=== PATIENT | female | born 1970 | race Caucasian/White ===

== ENCOUNTER 2017-05-20 10:46 | Emergency (ER) | payer OTHER ==
[~2017-05-20] VITALS: Ht 154.9 cm; Wt 55.3 kg
[~2017-05-20 10:46] MED LIST: ADV100/50 INH; AMOXICILLIN500 M1 PO; FERROUS GLUCON300 MG PO; MEDDP PO; METFORMIN HCL500 MG PO; QVAR0.08 MG/Ac IH; SINGULAIR10 MG PO; VENTOLIN H0.09 MG/A1 IH; VENTOLIN H0.09 MG/A1 INH; VITAMIN C100 M1 PO
[2017-05-20 10:50] VITALS: Ht 154.9 cm; Wt 55.3 kg
[2017-05-20 12:18] LABS: UA SPECIFIC GRAVITY 1.025 (1.005-1.035); microscopic required? YES; urine erythrocyte 2+ (NEGATIVE)
[2017-05-20 15:08] VITALS: BP 133/91
== END 2017-05-20 15:08 | disposition home or self-care (01) ==
LOC: ED 10:46
PROVIDERS: Emergency Medicine
DX: J45.901 Unspecified asthma with (acute) exacerbation (principal); N83.202 Unspecified ovarian cyst, left side; N83.201 Unspecified ovarian cyst, right side; N93.9 Abnormal uterine and vaginal bleeding, unspecified
CPT/HCPCS: J7512; J7613; J7644

== ENCOUNTER 2019-02-17 11:20 | Inpatient (IN) | payer OTHER ==
[~2019-02-17] VITALS: Ht 154.9 cm; Wt 56.7 kg
[2019-02-17 12:38] LABS: BASOPHIL % 1.3 % (0-2); PLATELET COUNT 371 x10^3mcL (130-400)
[2019-02-17 12:39] LABS: RED CELL DISTRIBUTION WIDTH 15.1 % (11.5-14.5)
--- NOTE | 2019-02-17 12:45 | NUR ---
PATIENT AAOX4 PRESENTS TO THE ED S/P FALL WITH SYNCOPE EPISODE IN THE SHOWER. PATIENT NOTED TO HAVE SWELLING AND ECCYMOSIS AROUND THE NASAL CAVITY AND FOREHEAD. BREATHING E/U, SKIN WARM DRY AND INTACT. NO OTHER SS OF DISTRESS NOTED. PT PLACED ON ALL MONITORS FOR FURTHER OBSERVATION. WILL CONTINUE TO MONITOR.
--- NOTE | 2019-02-17 13:00 | NUR ---
PATIENT SITTING UP ON GURNEY- C/O HEADACHE. PROVIDED ICE PACKS FOR COMFORT. WILL CONTINUE TO MONITOR.
[2019-02-17 13:01] LABS: CALCIUM 8.1 mg/dL (8.5-10.1); CARBON DIOXIDE 27.3 mmol/L (21-32); CHLORIDE SERUM 102 mmol/L (98-107); CREATININE SERUM 0.6 mg/dL (0.6-1.0); GFR1 > 60 mL/min; GLUCOSE SERUM 127 mg/dL (74-106); POTASSIUM SERUM 3.7 mmol/L (3.5-5.1); SODIUM SERUM 137 mmol/L (136-145)
[2019-02-17 13:13] LABS: ALBUMIN 3.7 g/dL (3.4-5.0); ALKALINE PHOSPHATASE 140 U/L (46-116); ALT/SGPT 71 U/L (14-59); AST/SGOT 84 U/L (15-37); BILIRUBIN TOTAL 0.61 mg/dL (0.20-1.00); CHOLESTEROL 216 mg/dL (<200); HDL CHOLESTEROL 103 mg/dL (40-60); LIPASE 200 IU/L (73-393); MAGNESIUM 1.9 mg/dL (1.8-2.4); T4(THYROXINE) 6.8 ug/dL (4.7-13.3); TOTAL PROTEIN, SERUM 8.2 g/dL (6.4-8.2)
[2019-02-17 14:40] LABS: UA SPECIFIC GRAVITY <=1.005 (1.005-1.035); microscopic required? YES; urine erythrocyte TRACE (NEGATIVE)
[2019-02-17 14:50] LABS: AMPHETAMINE QUAL UR NONE DETECTED (See below)
--- NOTE | 2019-02-17 15:34 | NUR ---
PATIENT PLACED IN RESPIRATORY ISOLATION PER DR ULRICH.
--- NOTE | 2019-02-17 15:54 | NUR ---
FAMILY BEDSIDE-- PATIENT SITTING UP ON GURNEY WITH NO SS OF DISTRESS NOTED. WILL CONTINUE TO MONITOR.
--- NOTE | 2019-02-17 15:59 | NUR ---
REPORT CALLED TO TOSIN LEVY A/A SHE WILL BE GOING UPSTAIRS VIA [facility] WITH MILLER SIMS AND EMT
--- NOTE | 2019-02-17 16:25 | NUR ---
RECEIVED PT FROM ED [facility]IA [facility], CAME IN DUE TO SYNCOPE. AAOX4. DENIES HEADACHE/DIZZINESS. ABLE TO FOLLOW COMMANDS. NO SOB NOTED, LUNG SOUNDS CTA. STATED THAT SHE HAS PRODUCTIVE COUGH, ABLE TO EXPECTORATE WHITE PHLEGM AT TIMES. DENIES CHEST PAIN/PRESSURE, SR ON THE MONITOR. DENIES ABDOMINAL DISCOMFORT. BOWEL SOUNDS ACTIVE. VOIDS. W/ ECCHYMOSIS AND SWELLING ON THE FACE. SIDE RAILS UPX2. CALL LIGHT ON REACH. PRIMARY NURSE TOSIN AT BEDSIDE FOR CONTINUITY OF CARE
[2019-02-17 16:39] VITALS: BP 144/86
[2019-02-17 16:44] VITALS: Ht 154.9 cm; Wt 56.7 kg
--- NOTE | 2019-02-17 17:30 | NUR ---
FLU VACCINE ADMINISTERED TO L ARM.
--- NOTE | 2019-02-17 19:20 | NUR ---
CARE ASSUMED FROM OUTGOING RN. PT RESTING COMFORTABLY IN BED. NO ACUTE DISTRESS NOTED. EVEN AND UNLABORED RESPIRATIONS ON RA. ON TELE# 17 READING SR WITH SLIGHTLY DEPRESSED T WAVE. IVL INTACT. NO C/O PAIN AT THIS TIME. AIRBORNE ISOLATION IN PLACE TO R/O TB. INSTRUCTED PT TO PROVIDE SPUTUM SAMPLE, PT VERBALIZED UNDERSTANDING. BED IN LOWEST POSITION. SIDE RAILS UPX2. CALL LIGHT WITHIN REACH. WILL CONTINUE TO MONITOR.
--- NOTE | 2019-02-17 19:24 | NUR ---
PT SEEN AT BEDSIDE, AOX4, RESP E/U ON RA. DENIES PAIN OR SOB. NO ACUTE DISTRESS NOTED. BED IN LOWEST POSITION AND CALL LIGHT WITHIN REACH. AIRBORNE PRECAUTIONS IN PLACE TO R/O TB. CARE ENDORSED TO MILLER CERVANTES.
[2019-02-17 21:10] VITALS: BP 113/55
--- NOTE | 2019-02-18 00:34 | NUR ---
PT RESTING COMFORTABLY IN BED WITH EYES CLOSED. NO ACUTE DISTRESS NOTED. EVEN AND UNLABORED RESPIRATIONS ON RA. ON TELE#17 READING SR 85. IV PATENT AND INTACT RUNNING FLUIDS PER EMAR. AIRBORNE PRECAUTION IN USE. BED IN LOWEST POSITION. SIDE RAILS UPX2. CALL LIGHT WITHIN REACH. WILL CONTINUE TO MONITOR.
[2019-02-18 04:39] VITALS: BP 159/63
--- NOTE | 2019-02-18 06:08 | NUR ---
PT SLEPT IN INTERVALS THROUGHOUT THE SHIFT. ALL NEEDS TENDED TO AND MET. ALL SCHEDULED MEDICATIONS GIVEN. ON TELE# 17 READING SR. IV PATENT AND INTACT RUNNING FLUIDS PER EMAR. NO C/O HEADACHE/DIZZINESS OR ANY PAIN. BED IN LOWEST POSITION. AIRBORNE PRECAUTION IN PLACE. SIDE RAILS UPX2. CALL LIGHT WITHIN REACH. WILL ENDORSE TO ONCOMING SHIFT.
[2019-02-18 06:43] LABS: CARBON DIOXIDE 23.7 mmol/L (21-32); CHLORIDE SERUM 103 mmol/L (98-107); CREATININE SERUM 0.6 mg/dL (0.6-1.0); GFR1 > 60 mL/min; GLUCOSE SERUM 156 mg/dL (74-106); MAGNESIUM 1.7 mg/dL (1.8-2.4); PHOSPHOROUS 3.4 mg/dL (2.5-4.9); POTASSIUM SERUM 3.8 mmol/L (3.5-5.1); SODIUM SERUM 136 mmol/L (136-145)
[2019-02-18 06:58] LABS: BASOPHIL % 0.3 % (0-2); PLATELET COUNT 291 x10^3mcL (130-400)
--- NOTE | 2019-02-18 07:31 | NUR ---
RECEIVED PT LYING IN BED WITH EYES CLOSED, EASILY AROUSABLE. BREATHING EQUAL/UNLABORED ON RA. NO ACUTE PAIN/ DISTRESS. IVF RUNNING. NO REDNESS/ SWELLING TO IV SITE. BED IN LOW POSITION, CALL LIGHT IN REACH, SAFETY PRECAUTIONS IN PLACE. WILL CONTINUE TO MONITOR
[2019-02-18 07:50] LABS: RED CELL DISTRIBUTION WIDTH 15.2 % (11.5-14.5)
[2019-02-18 08:54] VITALS: BP 137/89
--- NOTE | 2019-02-18 11:54 | NUR ---
PT LYING IN BED A/A. BREATHING EQUAL/UNLABORED ON RA. NO ACUTE PAIN/ DISTRESS. IVF RUNNING AT 100ML/HR. NO REDNESS/SWELLING TO IV SITE. BED IN LOW POSITION, CALL LIGHT IN REACH, SAFETY PRECAUTIONS IN PLACE. WILL CONTINUE TO MONITOR
[2019-02-18 12:42] VITALS: BP 137/82
--- NOTE | 2019-02-18 14:38 | NUR ---
P.T. NOTES P.T. EVAL COMPLETED; PATIENT MAY AMBULATE INSIDE ROOM, AD MORIAH W/ NURSE. O2 SAT ROOM AIR=95%
[2019-02-18 17:23] VITALS: BP 133/79
--- NOTE | 2019-02-18 18:25 | NUR ---
PT SITTING UP IN BED A/A/ BREATHING EQUAL/UNLABORED ON RA. NO ACUTE PAIN/ DISTRESS. IVF RUNNING AT 100ML/HR. NO REDNESS/ SWELLING TO IV SITE. BED IN LOW POSITON, CALL LIGHT IN REACH, SAFETY PRECAUTIONS IN PLACE, FAMILY AT BED SIDE. WILL ENDORSE TO NIGHT NURSE
--- NOTE | 2019-02-18 19:20 | NUR ---
RECEIVED REPORT FROM DAY SHIFT NURSE, SYLVIA BHATT. PT IS AAOX4. SPEECH IS CLEAR. DENIES STARK. ON TELE #17 READING SR AT 83. DENIES CP/PRESSURE. PULSES ARE PALPABLE. NO EDEMA NOTED. BREATHING IS EVEN AND UNLABORED ON RA. LUNG SOUNDS CTA. NO SIGNS OF RESP. DISTRESS. DENIES SOB. ABD IS SOFT AND NONDISTENDED. BS ACTIVE. DENIES N/V/D. VOIDS FREELY. DENIES DYSURIA. AMBULATORY. ECCHYMOSIS NOTED TO FACE. DENIES ANY PAIN AT THIS TIME. IV TO LAC DRY AND INTACT. NO ERYTHEMA NOTED. FRIEND AT BEDSIDE. BED IN LOWEST POSITION. CALL LIGHT WITHIN REACH. AIRBORNE PRECAUTIONS IN PLACE UNTIL TB R/O. WILL CONTINUE TO MONITOR.
[2019-02-18 20:27] VITALS: BP 135/78
--- NOTE | 2019-02-18 21:27 | NUR ---
ROUTINE MEDICATIONS WERE GIVEN AND TOLERATED WELL. NO ACUTE DISTRESS NOTED. BREATHING IS EVEN AND UNLABORED ON RA. NO SIGNS OF RESP. DISTRESS. DENIES ANY PAIN AT THIS TIME. DENIES ANY BLEEDING FROM NOSE AT THIS TIME. BED IN LOWEST POSITION. CALL LIGHT WITHIN REACH. WILL CONTINUE TO MONITOR.
--- NOTE | 2019-02-18 23:42 | NUR ---
PT IS RESTING COMFORTABLY IN BED WITH EYES CLOSED, BUT EASILY AROUSABLE WHEN SPOKEN TO. BREATHING IS EVEN AND UNLABORED ON RA. NO SIGNS OF RESP DISTRESS. BED IN LOWEST POSITION. CALL LIGHT WITHIN REACH. WILL CONTINUE TO MONITOR.
--- NOTE | 2019-02-19 01:52 | NUR ---
PT IS RESTING COMFORTABLY IN BED WITH EYES CLOSED, BUT EASILY AROUSABLE WHEN SPOKEN TO. BREATHING IS EVEN AND UNLABORED ON RA. NO SIGNS OF RESP. DISTRESS. DENIES PAIN AT THIS TIME. BED IN LOWEST POSITION. CALL LIGHT WITHIN REACH. WILL CONTINUE TO MONITOR.
--- NOTE | 2019-02-19 03:47 | NUR ---
PT IS RESTING COMFORTABLY IN BED. ASKED PT TO REPOSITION ARM TO PREVENT THE IV BEEPING. DENIES ANY PAIN AT THIS TIME. BREATHING IS EVEN AND UNLABORED ON RA. NO SIGNS OF RESP. DISTRESS. BED IN LOWEST POSITION. CALL LIGHT WITHIN REACH. WILL CONTINUE TO MONITOR.
[2019-02-19 04:35] VITALS: BP 130/69
--- NOTE | 2019-02-19 06:40 | NUR ---
PT SLEPT IN INTERVALS THROUGHOUT THE NIGHT AND COMPLIED WITH NURSING CARE WITH NO ACUTE EVENTS OCCURRING DURING THE SHIFT. COMFORT AND SAFETY MEASURES MAINTAINED. ALL NEEDS ASSESSED AND ATTENDED TO. WILL CONTINUE TO MONITOR AND ENDORSE CARE TO DAY SHIFT NURSE.
[2019-02-19 07:47] LABS: CALCIUM 8.3 mg/dL (8.5-10.1); CARBON DIOXIDE 21.6 mmol/L (21-32); CHLORIDE SERUM 107 mmol/L (98-107); CREATININE SERUM 0.5 mg/dL (0.6-1.0); GFR1 > 60 mL/min; GLUCOSE SERUM 158 mg/dL (74-106); MAGNESIUM 2.1 mg/dL (1.8-2.4); PHOSPHOROUS 3.3 mg/dL (2.5-4.9); POTASSIUM SERUM 3.7 mmol/L (3.5-5.1); SODIUM SERUM 138 mmol/L (136-145)
--- NOTE | 2019-02-19 07:50 | NUR ---
AAO X4.DENIES ANY PAIN/DISCOMFORT.LUNGS CLEAR.ON AIRBORNE ISOLATION R/O TB.BILAT EYE WITH ECCHYMOSIS ALSO ON NOSE.ON SR ON MONITOR 17.HR=68.IVF NS GOING AT 100 ML/HR INFUSING WELL.CALL LIGHT WITHIN REACH.INSTRUCTED TO CALL FOR ANY PAIN/DISCOMFORT.WILL CONTINUE TO MONITOR PT.
[2019-02-19 08:06] LABS: BASOPHIL % 0.1 % (0-2); PLATELET COUNT 259 x10^3mcL (130-400); RED CELL DISTRIBUTION WIDTH 15.2 % (11.5-14.5)
[2019-02-19 08:57] VITALS: BP 152/83
[2019-02-19 17:57] VITALS: BP 140/79
--- NOTE | 2019-02-19 20:00 | NUR ---
PT A/A/O X4. DENIES DIZZINESS AND HEADACHE. ECCHYMOSIS NOTED ON MICHELLE EYES AND NOSE. BREATH SOUNDS CLEAR. BREATHING EVEN AND UNLABORED ON ROOM AIR. PRODUCTIVE COUGH NOTED. DENIES CHEST PAIN AND PRESSURE. BOWEL SOUNDS ACTIVE. NO C/O N/V AND ABDOMINAL PAIN. IV INTACT ON THE LAC INFUSING WITH NS AT 100 ML/HR. MADE PT COMFORTABLE. PLACED CALL LIGHT WITH IN REACH. WILL CONTINUE TO MONITOR.
[2019-02-19 21:38] VITALS: BP 146/71
--- NOTE | 2019-02-20 01:39 | NUR ---
PT RESTING WITH EYES CLOSED. NO DISTRESS AND DISCOMFORT NOTED. WILL CONTINUE TO MONITOR.
[2019-02-20 05:57] VITALS: BP 138/67
--- NOTE | 2019-02-20 06:19 | NUR ---
PT RESTING WITH EYES CLOSED. EASILY AROUSABLE WITH VERBAL STIMULI. NO SIGNIFICANT CHANGES NOTED. MADE PT COMFORTABLE. WILL ENDORSE TO THE AM NURSE ACCORDINGLY.
[2019-02-20 06:28] LABS: PLATELET COUNT 317 x10^3mcL (130-400)
[2019-02-20 06:49] LABS: CALCIUM 8.4 mg/dL (8.5-10.1); CARBON DIOXIDE 24.7 mmol/L (21-32); CHLORIDE SERUM 105 mmol/L (98-107); CREATININE SERUM 0.5 mg/dL (0.6-1.0); GFR1 > 60 mL/min; GLUCOSE SERUM 170 mg/dL (74-106); MAGNESIUM 2.4 mg/dL (1.8-2.4); POTASSIUM SERUM 4.1 mmol/L (3.5-5.1); SODIUM SERUM 138 mmol/L (136-145)
[2019-02-20 06:58] LABS: BASOPHIL % 0 % (0-2); RED CELL DISTRIBUTION WIDTH 15.3 % (11.5-14.5)
--- NOTE | 2019-02-20 08:00 | NUR ---
AAO X4.DENIES ANY PAIN/DISCOMFORT.LUNGS CLEAR.ON AIRBORNE ISOLATION FOR R/O TB.ON SR ON THE MONITOR.IVF NS GOING AT 100 ML/HR INFUSING WELL.CALL LIGHT WITHIN REACH.INSTRUCTED TO CALL FOR ANY PAIN/DISCOMFORT.WILL CONTINUE TO MONITOR PT
[2019-02-20 09:54] VITALS: BP 125/65
--- NOTE | 2019-02-20 13:30 | NUR ---
IN INFILTRAED INSERTED 22 G ON L HAND.
--- NOTE | 2019-02-20 13:40 | NUR ---
PT COMFORTABLE NO COMPLAINTS.
[2019-02-20 17:04] VITALS: BP 150/76
--- NOTE | 2019-02-20 18:48 | NUR ---
NO SIGNIFICANT CHANGE NOTED.WILL ENDORSE TO NEXT SHIFT.
--- NOTE | 2019-02-20 19:30 | NUR ---
PT RECIEVED FROM DAY NURSE. PT RESTING IN BED AT THIS TIME. DENIES PAIN OR DISCOMFORT. A/O X4, CALM AND COOPERATIVE A TTHIS TIME. PT MS, DENIES CP, NV, DIZZINESS, AND PALPATATIONS. PALPABLE PULSES, NO EDEMA NOTED AT THIS TIME. BREATHIGN E/U ON RA. ABD SOFT AND ROUND, DENIES PAIN TO PALPATION. ECCYMOSIS NOTED TO MICHELLE EYES AND R UPPER ARM. IV TO LH, INTACT AND INFUSING. BED AT LOWEST POSITION. CALL LIGHT WITHIN REACH. WILL CONTINUE TO MONITOR.
[2019-02-20 20:59] VITALS: BP 143/68
--- NOTE | 2019-02-21 | NUR ---
PT RESTING IN BED AT THIS TIME. DENIES PAIN OR DISCOMFORT. BREATHING E/U ON RA AT THIS TIME. NO S/S OF PAIN AND DISCOMFORT. WILL CONTINUE TO MONITOR.
[2019-02-21 05:41] VITALS: BP 146/72
[2019-02-21 06:27] LABS: BASOPHIL % 0.2 % (0-2); PLATELET COUNT 300 x10^3mcL (130-400)
--- NOTE | 2019-02-21 06:32 | NUR ---
PT RESTING IN BED AT THIS TIME. DENIES PAIN OR DISCOMFORT. BREATHING E/U ON RA AT THIS TIME. NO SIGNS OF ACUTE DISTRESS NOTED. ALL NEEDS AND CONCERNS ADDRESSED THIS SHIFT. BED AT LOWEST POSITION. CALL LIGHT WITHIN REACH. WILL ENDORSE TO DAY NRUSE.
[2019-02-21 07:15] LABS: ALKALINE PHOSPHATASE 108 U/L (46-116); ALT/SGPT 42 U/L (14-59); AST/SGOT 16 U/L (15-37); BILIRUBIN TOTAL 0.44 mg/dL (0.20-1.00); CALCIUM 8.1 mg/dL (8.5-10.1); CARBON DIOXIDE 28.1 mmol/L (21-32); CHLORIDE SERUM 103 mmol/L (98-107); CREATININE SERUM 0.6 mg/dL (0.6-1.0); GFR1 > 60 mL/min; GLUCOSE SERUM 157 mg/dL (74-106); MAGNESIUM 2.3 mg/dL (1.8-2.4); PHOSPHOROUS 3.1 mg/dL (2.5-4.9); SODIUM SERUM 137 mmol/L (136-145); TOTAL PROTEIN, SERUM 7.4 g/dL (6.4-8.2)
[2019-02-21 07:21] LABS: ALBUMIN 3.3 g/dL (3.4-5.0)
--- NOTE | 2019-02-21 07:30 | NUR ---
RECEIVED HAND OFF REPORT FROM NIGHT NURSE, PATIENT AWAKE, ALERT, NOT COMPLAINING OF PAIN, SITITNG UP IN BED IN NEGATIVE PRESSURE ROOM. PATIENT WAS HAVING BLOOD TINGED SPUTUM BEFORE ADMISSION. AT THIS TIME PATIENT IS FEELING CONGESTED WITH DRY COUGH. AMUBLATORY WITHOUT ASSISTANCE, ECCHYMOSIS UNDER BILATERAL EYE DUE TO FALL AT HOME. MILD PAIN WHEN MANIPUIALTED. 22G IV TO RIGHT HAND, WITHIN NORMAL LIMITS. CALL LIGHT WITHIN REACH, WILL CONTINUE TO MONITR
[2019-02-21 07:36] VITALS: BP 159/86
[2019-02-21 07:52] LABS: RED CELL DISTRIBUTION WIDTH 15.6 % (11.5-14.5)
--- NOTE | 2019-02-21 11:46 | NUR ---
GAVE HAND OFF REPORT TO MILLER WARD. PATIENT UPDATED ON PLAN OF CARE. PER DR ADHIKARI, STILL AWAITING RESULTS FROM 2 TESTS TO CONFIRM ABSENCE OF TB. DISCHARGE AFTER NEGATIVE RESULT. ALL QUESTIONS FROM MILLER WARD ANSWERED
[2019-02-21 12:01] VITALS: BP 130/66
--- NOTE | 2019-02-21 12:45 | NUR ---
PT SITTING UP IN BED A/A. BREATHING EQUAL/UNLABORED ON RA. NO ACUTE PAIN/ DISTRESS. IVF RUNNING, SITE WNL. BED IN LOW POSITION, CALL LIGHT IN REACH, SAFETY PRECAUTIONS IN PLACE. WILL CONTINUE TO MONITOR
[2019-02-21 17:03] VITALS: BP 142/89
--- NOTE | 2019-02-21 18:55 | NUR ---
PT SITTING UP IN BED A/A. BREATHING EQUAL/UNLABORED ON RA. NO ACUTE PAIN/ DISTRESS. IVF RUNNING, SITE WNL. BED IN LOW POSITION, CALL LIGHT IN REACH, SAFETY PRECAUTIONS IN PLACE. WILL ENDORSE TO NIGHT NURSE
[2019-02-21 20:30] VITALS: BP 152/90
--- NOTE | 2019-02-21 21:31 | NUR ---
RECIEVED PT FROM PREVIOUS SHIFT NURSE. PT AOX4. PT DENIES SOB, DIFFICULTY BREATHING OR PAIN. IV LH PATENT AND INTACT. BED IN LOWEST POSITION AND CALL LIGHT WITHIN REACH.
--- NOTE | 2019-02-22 05:10 | NUR ---
PT RESTING IN BED. RR EVEN AND UNLABORED AND IN NO ACUTE DISTRESS. BED IN LOWEST POSITION AND CALL LIGHT WITHIN REACH. WILL CONTINUE TO MONITOR.
[2019-02-22 05:30] VITALS: BP 132/78
[2019-02-22 06:21] LABS: PLATELET COUNT 312 x10^3mcL (130-400)
[2019-02-22 06:34] LABS: BASOPHIL % 0 % (0-2); RED CELL DISTRIBUTION WIDTH 15.8 % (11.5-14.5)
[2019-02-22 06:42] LABS: CALCIUM 8.2 mg/dL (8.5-10.1); CHLORIDE SERUM 103 mmol/L (98-107); CREATININE SERUM 0.5 mg/dL (0.6-1.0); GFR1 > 60 mL/min; GLUCOSE SERUM 132 mg/dL (74-106); MAGNESIUM 2.5 mg/dL (1.8-2.4); PHOSPHOROUS 3.5 mg/dL (2.5-4.9); POTASSIUM SERUM 3.9 mmol/L (3.5-5.1); SODIUM SERUM 137 mmol/L (136-145)
--- NOTE | 2019-02-22 07:03 | NUR ---
RECEIVED PT FROM COMMERCIAL LOAN COLLECTION OFFICER NURSE. PT IN BED SLEEPING, AROUSABLE, RESP E/U ON RA. NO SIGNS OF ACUTE DISTRESS NOTED. IV TO L HAND W/ NO SIGNS OF INFILTRATION. FACIAL ECCHYMOSIS NOTED. AIRBORNE PRECAUTIONS IN PLACE, BED IN LOWEST POSITION AND CALL LIGHT WITHIN REACH. WILL CONTINUE TO MONITOR.
--- NOTE | 2019-02-22 07:07 | NUR ---
PT IN BED RESTING. PT AIRBORNE PRECAUTION. RR EVEN AND UNLABORED NO SIGNS OF ACUTE DISTRESS. IV SALINE LOCKED. BED IN LOWEST POSITION AND CALL LIGHT WITHIN REACH. WILL ENDORSE CARE TO ONCOMING SHIFT NURSE.
[2019-02-22 07:23] VITALS: BP 151/86
--- NOTE | 2019-02-22 12:10 | NUR ---
PT RESTING IN BED, AXO4, RESP E/U ON RA. DENIES HEADACHE, SOB OR PAIN, NO ACUTE DISTRESS NOTED. BED IN LOWEST POSITION AND CALL LIGHT WITHIN REACH. WILL CONTINUE TO MONITOR.
[2019-02-22] MEDS ORDERED: ZITHROMAX500 MG PO (12:46)
[2019-02-22] MEDS ORDERED: PREDNISONE20 MG PO ×2 (12:47→13:37)
[2019-02-22 13:00] VITALS: BP 151/86
[2019-02-22 13:07] VITALS: BP 136/81
--- NOTE | 2019-02-22 13:26 | NUR ---
PT DISCHARGED. REVIEWED DISCHARGE PACKET, NEW RX MEDS AND FOLLOW UP INSTRUCTIONS W/ PT. PT AOX4, RESP E/U ON RA, VS STABLE, DENIES PAIN. IV TO L HAND REMOVED, CATH INTACT, GAUZE DRESSING APPLIED. PT AMBULATORY TO DISCHARGE OFFICE. ESCORTED BY FAMILY AND EXT JS DEVELOPER ALAN W/ NO ACUTE INCIDENCE.
[2019-02-22] MEDS ORDERED: AUG500 PO (13:37)
== END 2019-02-22 13:27 | disposition home or self-care (01) | DRG 115 ==
LOC: ED 11:20 → DU 15:40 → MU 02-20 15:51
PROVIDERS: Emergency Medicine; Internal Medicine; ADMIT General Practice
DX: S02.2XXA Fracture of nasal bones, initial encounter for closed fracture (principal); G92 Toxic encephalopathy; E44.0 Moderate protein-calorie malnutrition; J45.901 Unspecified asthma with (acute) exacerbation; J98.4 Other disorders of lung; F10.229 Alcohol dependence with intoxication, unspecified; W18.39XA Other fall on same level, initial encounter; T51.0X4A Toxic effect of ethanol, undetermined, initial encounter; Y90.0 Blood alcohol level of less than 20 mg/100 ml; Y93.89 Activity, other specified; Y92.012 Bathroom of single-family (private) house as the place of occurrence of the external cause; Z68.23 Body mass index [BMI] 23.0-23.9, adult; J45.909 Unspecified asthma, uncomplicated; Z90.49 Acquired absence of other specified parts of digestive tract; I45.10 Unspecified right bundle-branch block; F32.9 Major depressive disorder, single episode, unspecified; R73.03 Prediabetes
CPT/HCPCS: 82962; 83880; 86480; 87116; 87206; 90658; 94150; G0378; G0480; J0456; J2920; J7030; J7512; J7620

== ENCOUNTER 2019-11-13 12:00 | Inpatient (IN) | payer OTHER ==
[~2019-11-13] VITALS: Ht 154.9 cm; Wt 59.0 kg
[~2019-11-13 12:00] MED LIST changes: +AUG500 PO; +PREDNISONE20 MG PO; +ZITHROMAX500 MG PO
[2019-11-13 12:07] VITALS: Ht 154.9 cm; Wt 59.0 kg
[2019-11-13 14:01] LABS: BASOPHIL % 0.1 % (0-2); PLATELET COUNT 305 x10^3mcL (130-400)
[2019-11-13 14:08] LABS: RED CELL DISTRIBUTION WIDTH 14.8 % (11.5-14.5)
[2019-11-13 14:25] LABS: CALCIUM 8.9 mg/dL (8.5-10.1); CARBON DIOXIDE 23.7 mmol/L (21-32); CHLORIDE SERUM 101 mmol/L (98-107); CREATININE SERUM 0.8 mg/dL (0.6-1.0); GFR1 > 60 mL/min; GLUCOSE SERUM 159 mg/dL (74-106); POTASSIUM SERUM 3.1 mmol/L (3.5-5.1); SODIUM SERUM 139 mmol/L (136-145)
[2019-11-13 14:29] LABS: ALBUMIN 3.6 g/dL (3.4-5.0); ALKALINE PHOSPHATASE 177 U/L (46-116); ALT/SGPT 78 U/L (14-59); AST/SGOT 96 U/L (15-37); BILIRUBIN TOTAL 1.6 mg/dL (0.20-1.00); TOTAL PROTEIN, SERUM 8.1 g/dL (6.4-8.2)
[2019-11-13 18:34] VITALS: BP 148/84
[2019-11-13 20:50] VITALS: BP 154/79
[2019-11-13 22:00] VITALS: BP 154/79
[2019-11-14 02:31] LABS: AMPHETAMINE QUAL UR POSITIVE (See below)
[2019-11-14 05:48] VITALS: BP 132/66
[2019-11-14 06:49] LABS: PLATELET COUNT 241 x10^3mcL (130-400)
[2019-11-14 07:01] LABS: BASOPHIL % 0 % (0-2); RED CELL DISTRIBUTION WIDTH 14.7 % (11.5-14.5)
[2019-11-14 07:39] LABS: CALCIUM 8.4 mg/dL (8.5-10.1); CARBON DIOXIDE 24.3 mmol/L (21-32); CHLORIDE SERUM 104 mmol/L (98-107); CREATININE SERUM 0.6 mg/dL (0.6-1.0); GFR1 > 60 mL/min; GLUCOSE SERUM 196 mg/dL (74-106); PHOSPHOROUS 2.5 mg/dL (2.5-4.9); POTASSIUM SERUM 3.8 mmol/L (3.5-5.1); SODIUM SERUM 138 mmol/L (136-145)
[2019-11-14 07:57] VITALS: BP 150/81
[2019-11-14 12:17] VITALS: BP 128/70
[2019-11-14 16:10] VITALS: BP 146/106
[2019-11-14 22:06] VITALS: BP 123/66
[2019-11-15 05:55] VITALS: BP 148/83
[2019-11-15 07:01] LABS: CALCIUM 8.8 mg/dL (8.5-10.1); CARBON DIOXIDE 26.3 mmol/L (21-32); CHLORIDE SERUM 106 mmol/L (98-107); CREATININE SERUM 0.5 mg/dL (0.6-1.0); GFR1 > 60 mL/min; GLUCOSE SERUM 179 mg/dL (74-106); MAGNESIUM 2.3 mg/dL (1.8-2.4); PHOSPHOROUS 2.6 mg/dL (2.5-4.9); POTASSIUM SERUM 4.3 mmol/L (3.5-5.1); SODIUM SERUM 139 mmol/L (136-145)
[2019-11-15 07:12] LABS: PLATELET COUNT 262 x10^3mcL (130-400)
[2019-11-15 07:43] LABS: BASOPHIL % 0 % (0-2); RED CELL DISTRIBUTION WIDTH 15.1 % (11.5-14.5)
[2019-11-15 08:19] VITALS: BP 166/100
[2019-11-15] MEDS ORDERED: NOR5 PO ×2 (11:05→12:46)
[2019-11-15] MEDS ORDERED: COZ25 PO (11:06)
[2019-11-15] MEDS ORDERED: MONTELUKAST SOD10 M1 PO ×2 (11:06→12:46)
[2019-11-15] MEDS ORDERED: PREDNISONE20 MG PO (11:08)
[2019-11-15] MEDS ORDERED: LEVAQUIN500 M1 PO ×2 (11:12→12:46)
[2019-11-15 11:15] VITALS: BP 132/77
[2019-11-15 11:51] VITALS: BP 132/77
[2019-11-15] MEDS ORDERED: LOSARTAN POTASS25 M1 PO (12:46)
[2019-11-15] MEDS ORDERED: PRE20 PO (12:46)
== END 2019-11-15 12:52 | disposition home or self-care (01) | DRG 141 ==
LOC: ED 12:00 → DU 14:02
PROVIDERS: Emergency Medicine; ADMIT Family Medicine; ATTEND Family Medicine
DX: J45.901 Unspecified asthma with (acute) exacerbation (principal); E43 Unspecified severe protein-calorie malnutrition; J18.9 Pneumonia, unspecified organism; R73.03 Prediabetes; Z20.828 Contact with and (suspected) exposure to other viral communicable diseases; D72.829 Elevated white blood cell count, unspecified; F10.10 Alcohol abuse, uncomplicated; J47.9 Bronchiectasis, uncomplicated; Z90.49 Acquired absence of other specified parts of digestive tract; Z79.899 Other long term (current) drug therapy; Z87.898 Personal history of other specified conditions
CPT/HCPCS: 36600; 83880; 85378; G0378; G0480; J2060; J2405; J2920; J2930; J3535; J7030; J7613; J7626; Q0092; Q9967

== ENCOUNTER 2020-04-30 21:35 | Emergency (ER) | payer OTHER ==
[~2020-04-30] VITALS: Ht 154.9 cm; Wt 54.4 kg
[~2020-04-30 21:35] MED LIST changes: +COZ25 PO; +LEVAQUIN500 M1 PO; +LOSARTAN POTASS25 M1 PO; +MONTELUKAST SOD10 M1 PO; +NOR5 PO; +PRE20 PO
[2020-04-30 21:47] VITALS: Ht 154.9 cm; Wt 54.4 kg
[2020-04-30] MEDS ORDERED: IBU600 M2 PO (22:23)
[2020-04-30 22:53] VITALS: BP 144/99
== END 2020-04-30 22:53 | disposition home or self-care (01) ==
LOC: ED 21:35
DX: S93.601A Unspecified sprain of right foot, initial encounter (principal); J45.909 Unspecified asthma, uncomplicated; Z90.49 Acquired absence of other specified parts of digestive tract; W17.89XA Other fall from one level to another, initial encounter; Y93.89 Activity, other specified; Y92.89 Other specified places as the place of occurrence of the external cause; Y99.8 Other external cause status